=== PATIENT | female | born 1995 | race Caucasian/White ===

== ENCOUNTER 2024-06-29 13:07 | Emergency (ER) | payer OTHER, SELFPAY ==
--- NOTE | ~2024-06-29 | US_ITS ---
FIRST TRIMESTER ULTRASOUND 06/29/2024 15:01 CDT Ordering provider: Denise Boyer PA-C History: . 11 weeks, bleeding . Comparison: None. FINDINGS: INTRAUTERINE GESTATIONAL SAC: Present in the lower segment. Fluid is seen in the cervix area. YOLK SAC: Not seen. POLE: Present. Measures 3.2 cm equivalent to 10 weeks and 1 day. heart rate: Not visualized. FREE FLUID: None. OVARIES: Not visualized. ADNEXAL MASSES: None. IMPRESSION: Intrauterine in the lower segment equivalent to 11 weeks and 1 day. No heart activity is seen. Reviewed, dictated and finalized at location A.
[2024-06-29 14:08] VITALS: BP 141/87; PULSE 96; RESP 20; TEMP 37; O2SAT 97
--- NOTE | 2024-06-29 14:15 | ED.FEMALEGU ---
HPI - Female Genitourinary General Chief complaint: Vaginal Bleeding <REMINGTON Rodney Last Filed: 06/29/24 19:10> Stated complaint: vaginal bleeding cramping, 11 weeks <REMINGTON Rodney Last Filed: 06/29/24 19:10> Time Seen by Provider: 06/29/24 14:15 <REMINGTON Rodney Last Filed: 06/29/24 19:10> Focused HPI: Patient is a 28-year-old female who presents the ED with report of vaginal bleeding. Patient is and currently 11 weeks gestation. Confirmed IUP @ [address] Harvey. She reports she had some light brown vaginal discharge yesterday. Today began having vaginal spotting. Reports spotting has been fairly light, mostly noticing pink with wiping. She also reports having mild lower abdominal cramping. Referred to the ED for further evaluation. Denies significant nausea, vomiting, dysuria, fevers. GENERAL: Well-appearing, well-nourished, and in no acute distress. HEAD: Normocephalic, atraumatic. CHEST: Clear to auscultation. ?No respiratory distress. HEART: Regular rate and rhythm.? NEURO: ?Alert and oriented x3. Patient screened in triage and initial orders placed.? ?Additional care and disposition to be based upon?diagnostic testing and treatment. <REMINGTON Rodney Last Filed: 06/29/24 19:10> Source: patient <REMINGTON Rodney Last Filed: 06/29/24 19:10> Mode of arrival: ambulatory <REMINGTON Rodney Last Filed: 06/29/24 19:10> Limitations: no limitations <REMINGTON Rodney Last Filed: 06/29/24 19:10> Related Data Allergies/Adverse reactions: Allergies Allergy/AdvReac Type Severity Reaction Status Date / Time Sulfa (Sulfonamide Allergy Hives Verified 06/29/24 18:58 Antibiotics) <REMINGTON Rodney Last Filed: 06/29/24 19:10> Review of Systems Review of Systems: CONSTITUTIONAL: Denies fever GASTROINTESTINAL: Reports pelvic cramping GENITOURINARY: Reports vaginal bleeding <Carolyn Lima PA-C - Last Filed: 06/29/24 22:04> All systems reviewed & are unremarkable except as noted in HPI and below <Carolyn Lima PA-C - Last Filed: 06/29/24 22:04> PMFSH Past Medical History Medical History: Medical History (Updated 06/29/24 @ 20:26 by Carolyn Lima PA-C) No active medical problems <Denise Boyer PA-C - Last Filed: 06/29/24 19:10> Social History Social History: Social History (Updated 06/29/24 @ 19:30 by Carolyn Lima PA-C) Substance use: never <Denise Boyer PA-C - Last Filed: 06/29/24 19:10> Exam Narrative: GENERAL: Well-appearing, well-nourished, and in no acute distress. HEAD: Normocephalic, atraumatic. EYES: EOMI. CHEST: No respiratory distress. HEART: Regular rate ABDOMEN: Soft, nontender, nondistended, normal active bowel sounds. EXTREMITIES: Normal range of motion. No edema. SKIN: Warm, dry, no rash. NEURO: No focal deficits. Alert and oriented x3. PSYCH: Normal mood and affect PELVIC: Normal external genitalia. Cervix is open with moderate amount of bright red blood in the vaginal vault with clots <Carolyn Lima PA-C - Last Filed: 06/29/24 22:04> Course Course Emergency Course: Patient and family updated on workup. She declines Cytotec at this time <Carolyn Lima PA-C - Last Filed: 06/29/24 22:04> Consultations Consultation #1: Spoke with Dr. Harvey about patient and workup. Can offer Cytotec here. He would like her to go to the office at 9:00AM on Tuesday for follow up <Carolyn Lima PA-C - Last Filed: 06/29/24 22:04> Date: 06/29/24 <Carolyn Lima PA-C - Last Filed: 06/29/24 22:04> Vital Signs Vital signs: Vital Signs Temperature 98.6 F 06/29/24 14:08 Pulse Rate 96 06/29/24 14:08 Respiratory Rate 20 06/29/24 14:08 Blood Pressure 141/87 H 06/29/24 14:08 Pulse Oximetry 97 06/29/24 14:08 Oxygen Delivery Room Air 06/29/24 14:08
[2024-06-29 14:47] LABS: Basophils Percent Auto 0.3 % (0.2-1.2); Eosinophils Absolute Auto 0.1 K/mm3 (0-0.3); Eosinophils Percent Auto 0.7 % (0-4.4); Hematocrit 43.2 % (37.0-47.0); Hemoglobin 14.2 g/dL (12.0-15.0); Immature Granulocyte Absolute 0.03 K/mm3 (0.00-0.031); Immature Granulocyte Percent A 0.4 % (0-0.5); Lymphocytes Absolute Auto 1.07 K/mm3 (0.9-3.2); Lymphocytes Percent Auto 14.4 % (18.3-44.2); Mean Corpuscular HGB Conc 32.9 g/dl (32-36); Mean Corpuscular Hemoglobin 29.6 pg (26-34); Mean Corpuscular Volume 90.2 fl (80-100); Mean Platelet Volume 10.1 fl (7.4-10.4); Monocytes Absolute Auto 0.5 K/mm3 (0.1-0.6); Monocytes Percent Auto 6.6 % (2.6-8.5); Neutrophils Absolute Auto 5.8 K/mm3 (1.3-6.7); Neutrophils Percent Auto 77.6 % (45.5-73.1); Platelet Count Result 289 k/mm3 (150-375); Red Blood Count 4.79 M/mm3 (4.2-5.4); Red Cell Distribution Width 12.2 % (11.5-14.5); White Blood Count 7.4 K/mm3 (4.5-10.0)
[2024-06-29 14:56] LABS: Add Urine Microscopic? YES; Appearance Urine Clear (Clear); Bacteria Urine None Seen /hpf; Bilirubin Urine Negative (Negative); Blood Urine 2+ (Negative); Color Urine Yellow (Yellow); Glucose Urine UA Negative (Negative); Ketones Urine 3+ mg/dL (Negative); Leukocyte Esterase Ur Negative LEU/UL (Negative); Nitrate Urine Negative (Negative); Non Pathogenic Casts 0-2; Protein Urine Trace mg/dL (Negative); RBC Urine 21-50 /hpf (0-2); Specific Grav Ur 1.019 (1.001-1.035); Squamous Epithelial Cell Urine None Seen /hpf (Few); Urobilinogen Urine 0.2 mg/dL (<2.0); WBC Urine 0-5 /hpf (0-3); pH Urine 5.5 (5.0-9.0)
[2024-06-29 14:58] LABS: Alanine Aminotransferase 67 U/L (6-35); Albumin Level 4.3 g/dL (3.5-5.1); Alkaline Phosphatase 68 U/L (38-126); Anion Gap 12 mmol/L (4-12); Aspartate Amino Transferase 52 U/L (14-36); Bilirubin,Total 0.2 mg/dL (0.2-1.3); Blood Urea Nitrogen 6 mg/dL (7-17); Calcium 9.3 mg/dL (8.4-10.2); Carbon Dioxide 21 mmol/L (22-30); Chloride 104 mmol/L (98-107); Estimated CRCL calculation 135 ml/min; Estimated Glomerular Filt Rate > 60; Glucose 90 mg/dL (65-110); Potassium 3.7 mmol/L (3.4-5.0); Sodium 137 mmol/L (137-145)
[2024-06-29 18:56] VITALS: BP 133/95; PULSE 109; RESP 20; O2SAT 100
== END 2024-06-29 20:40 | disposition home or self-care (01) ==
PROVIDERS: Physician Assistant; Emergency Provider Physician Assistant
DX: O02.1 Missed abortion (principal)
CPT/HCPCS: 36415; 76801; 76817; 80053; 81001; 84702; 85025; 85461; 86850; 86900; 86901; 99284

== ENCOUNTER 2024-07-04 02:11 | Day surgery (SDC) | payer OTHER, SELFPAY ==
[2024-07-02 18:10] VITALS: BMI 38.0
--- NOTE | 2024-07-02 18:17 | SUR.PREOP ---
Report to the Outpatient Waiting Room, entrance under the green pavilion located off [facility], at time 1430 on date 07/04/2024. Planned Procedure Time: 1630.? Time changes happen often and if your time is changed the preop area will call you the afternoon before. - You and your visitor will be asked to self-screen and do not enter if you have any COVID symptoms. Please call surgeon if you need to reschedule. - A mask is optional within the hospital at this time. Patients may have clear liquids (water, carbonated beverages, clear teas, apple juice) until 3 hours prior to surgery with a maximum of 20 ounces. - No food from midnight until time of surgery and no smoking - Infants may have breast milk until 4 hours before surgery, infant formula 6 hours prior to surgery. - Children will be allowed to drink immediately following surgery.? If applicable, please bring a bottle or sippy cup to assist with drinking. Juice, water, soda, and popsicles are readily available.? For infants on formula, please bring formula the day of surgery.? Pacifiers are allowed. Take only the following medications with a SIP of water on the morning of surgery: N/A DO NOT STOP ANY OF YOUR OTHER PRESCRIPTION MEDICATIONS PRIOR TO SURGERY EXCEPT THE FOLLOWING Medications to discontinue per physician vitamins Date to take last dose 07/02/2024 Please no make-up, nail namibian, hairspray, perfume, deodorant, or body powder the day of surgery.? No jewelry (including any body piercings) or valuables the day of surgery, leave them at home.? Please take a shower or bath the night before, or the morning of, surgery with an antibacterial soap.? Wear comfortable, loose fitting clothing.? Children are encouraged to wear pajamas. - Jewelry must be removed prior to entering the operating room.? Rings and piercings that are not removed may be cut off. - The hospital will not accept responsibility for valuables.? - Please leave all valuables, including medications, at home the day of surgery. If you are going home after surgery, a licensed bus driver school must drive you home.? - NO public transportation without another adult if you receive anesthesia. - We recommend that an adult stay with you for 24 hours following discharge. - We also recommend that you do not drive, make important decision, drink alcoholic beverages, or take any drugs that were not prescribed by your health care provider for at least 24 hours after your discharge time. For Pediatric surgeries, we recommend two adults accompany the child home. Follow any additional instructions given to you from your surgeon. Telephone instructions given to Ellie Babb and asked if any additional questions and then verbalized understanding. Patient advised to call surgeon office or pre surgery nurse liaison [phone] if any additional questions.
[2024-07-04] MEDS: LACTATED RINGERS 1,000 ML 30 ML IV CONT (13:50)
[2024-07-04] MEDS: ACETAMINOPHEN 500 MG TABLET 1000 MG PO (15:00)
[2024-07-04 15:05] VITALS: BP 135/80; PULSE 84; RESP 16; TEMP 36.4; O2SAT 100
--- NOTE | 2024-07-04 15:34 | P.PNAN_ITS ---
Anes - Initial Pre Proc Eval Procedure: Operation Date: 07/04/24 15:30 Proposed Procedures p Suction Dilation and Curettage - Juan Carlos Harvey MD Date/Time: 07/04/24 15:34 Surgeon: Juan Carlos Harvey MD Pre Op Diagnosis: incomplete miscarriage Patient Data Age: 28 Gender: F Height: 1.6 m Weight: 98.1 kg Last Vital Signs Temp 97.5 F L 07/04/24 15:05 Pulse 84 07/04/24 15:05 Resp 16 07/04/24 15:05 BP 135/80 07/04/24 15:05 Pulse Ox 100 07/04/24 15:05 O2 Del Method Room Air 07/04/24 15:05 Allergies Allergy/AdvReac Type Severity Reaction Status Date / Time Sulfa (Sulfonamide Allergy Hives Verified 07/04/24 15:03 Antibiotics) Home Medications Medication Instructions Recorded Confirmed Type vits 75-iron 28 mg-folic 1 pkg PO DAILY 07/02/24 07/02/24 History acid 800 mcg-omega3 440 mg oral pack (One Daily ) rizatriptan PRN Migraine Headache 07/02/24 History Patient hx anesthesia problems: none Family hx anesthesia problems: none Results Review: All pre-operative results and documents have been reviewed as part of the pre- operative evaluation. [facility] Past Medical History Medical History No active medical problems Social History Social History Smoking status: Never smoker Substance use: never Living arrangements: with family Spiritual care concerns: No Anes - Eval Final PreProcedure Day of Procedure 07/04/24 15:34 Patient weight: obese Heart: regular rate and rhythm Lungs: clear to auscultation Airway: Mallampati scale class III Neurological: alert and oriented Last oral intake: >/= 8 hours ASA classification: II Emergent: no Anesthetic plan: proceed Anesthesia type and monitoring: general GIVS and standard monitoring Results Review: All pre-operative results and documents have been reviewed as part of the pre- operative evaluation. BMI 38, pt active and can walk 1-2 fos without cp or sob. Informed Consent: The patient's anesthetic plan and its attendant risks and benefits were discussed with the patient/family/POA. Questions were solicited and answers provided to the satisfaction of the patient/family/POA.
--- NOTE | 2024-07-04 15:56 | PM.IMHP ---
H&P: HPI History of Present Illness Date/Time: 07/04/24 15:56 Chief Complaint: Missed miscarriage Narrative: this patient is a 28-year-old female with missed miscarriage. We have agreed to perform suction D&C. She understands risks, benefits, and alternatives. She has completed informed consent process was reviewed to proceed. The patient understands the details of the procedure. The procedure has been explained in detail. She understands the risks. She understands that injuries may occur that result in hospitalization, more surgery, and severe illness. She understands risk of hemorrhage and infection. She denies any chest pain or shortness of breath. She denies any nausea, vomiting, fever, chills. Review of Systems Review of Systems: All systems reviewed & are unremarkable except as noted in HPI and below Constitutional: Constitutional: Denies chills, Denies fatigue, Denies fever(s) and Denies weakness Eyes: Eyes: Denies blurry vision, Denies change in vision, Denies loss of peripheral vision, Denies loss of vision, Denies other visual disturbances and Denies eye pain ENT: Denies vertigo, Denies dizziness, Denies hearing loss, Denies mouth pain, Denies nasal obstruction, Denies neck mass and Denies neck pain Cardiovascular: Cardiovascular: Denies chest pain, Denies diaphoresis, Denies syncope, Denies leg edema and Denies dyspnea Respiratory: Respiratory: Denies chest congestion, Denies cough, Denies hemoptysis, Denies dyspnea and Denies wheezing Gastrointestinal: Gastrointestinal: Denies abdominal pain, Denies constipation, Denies diarrhea, Denies nausea and Denies vomiting Genitourinary: Genitourinary: Denies hematuria, Denies change in libido, Denies nocturia, Denies genital lesions, Denies flank pain and Denies urinary urgency Musculoskeletal: Musculoskeletal: Denies abnormal gait, Denies back pain, Denies myalgias, Denies arthralgias, Denies joint swelling, Denies muscle weakness and Denies neck pain Integumentary/Breasts: Skin/Breast: Denies swelling, Denies breast pain, Denies breast mass, Denies dry skin, Denies nipple discharge, Denies unusual bruising and Denies jaundice Neurologic: Denies Neuro-related abnormal movements, Denies Abnormal speech present, Denies abnormal gait, Denies behavioral changes, Denies confusion, Denies vertigo, Denies dizziness, Denies syncope, Denies loss of vision, Denies memory loss, Denies convulsions and Denies weakness Psychiatric: Psychiatric: Denies abnormal sleep pattern, Denies behavioral changes, Denies change in libido, Denies confusion, Denies depression, Denies anhedonia and Denies memory loss Endocrine: Endocrine: Reports no additional endocrine complaints, Denies change in libido and Denies fatigue Hematologic/Lymphatic: Hematologic/Lymphatic: Reports no additional hematologic/lymphatic complaints Allergic/Immunologic: Allergic/Immunologic: Reports no additional allergic/immunologic complaints and Denies wheezing PMFSH Past Medical History Medical History No active medical problems Social History Social History Smoking status: Never smoker Substance use: never Living arrangements: with family Spiritual care concerns: No Meds Home Medications and Allergies Home Medications Medication Instructions Recorded Confirmed Type vits 75-iron 28 mg-folic 1 pkg PO DAILY 07/02/24 07/02/24 History acid 800 mcg-omega3 440 mg oral pack (One Daily ) rizatriptan PRN Migraine Headache 07/02/24 History Allergies Allergy/AdvReac Type Severity Reaction Status Date / Time Sulfa (Sulfonamide Allergy Hives Verified 07/04/24 15:03 Antibiotics) Vital Signs Vital Signs - 24 hr 07/04/24 15:05 Temperature 97.5 F L Pulse Rate 84 Respiratory Rate 16 Blood Pressure 135/80 Pulse Oximetry 100 Oxygen Delivery Room
--- NOTE | 2024-07-04 15:59 | WPDHPUPDATE1 ---
History and Physical Update Update Date/Time: 07/04/24 15:59 History and Physical has been reviewed, including an updated exam of the patient. There are NO changes in the patient's condition. Risks, benefits, and alternatives have been discussed and questions answered. Patient agrees to proceed with procedure.
[2024-07-04] MEDS: LIDOCAINE HCL 1% LOCAL INJ 20 ML VIAL 10 ML INFILTRATE (16:16)
[2024-07-04 16:27] VITALS: BP 126/94; PULSE 98; RESP 14
--- NOTE | 2024-07-04 16:38 | P.OP_ITS ---
Procedure Note - Detailed Date of Procedure 07/04/24 Pre-op Diagnosis incomplete miscarriage Post-op Diagnosis Same Procedure Performed Suction D&C Surgeon Juan Carlos Harvey MD Anesthesia MAC Indications missed Findings normal-appearing vulva vagina and cervix to. Moderate amount of products conception within the uterus. 8 cm uterus Description of Procedure the patient was taken the operating room. She was prepped and draped in dorsal lithotomy position after induction of mac anesthesia. A speculum was placed in the vagina. Cervix grasped with tenaculum. The cervix was dilated to about 1 c m Using Pandey dilators. A 8. Scottish curved curette was used to perform suction D&C. The curette was introduced and vacuum was applied. The curette was removed over all surfaces of the intrauterine cavity multiple times. This was done until all the surfaces were clear and had the familiar grainy texture they can be felt through the instrument. A sharp curette was then used to curettage all the surfaces. The suction cup was then reapplied 1 more time to remove any debris. The instruments were removed. The speculum and tenaculum were removed. The patient tolerated the procedure well. She was taken recovery room stable condition. Estimated Blood Loss 50 Drains No Packing No Pathology Yes Complications No immediate complications Condition Stable Disposition PACU
[2024-07-04 16:58] VITALS: BP 124/58; PULSE 78; RESP 16
[2024-07-04 17:12] VITALS: BP 124/58; PULSE 78; RESP 16
== END 2024-07-04 17:30 | disposition home or self-care (01) ==
PROVIDERS: Visit Provider Obstetrics & Gynecology
PROC: (CPT 59820; principal; 2024-07-04 15:30)
DX: O02.1 Missed abortion (principal)
CPT/HCPCS: 59820; 88305; A9270; J1100; J1885; J2250; J2405; J2704; J3010; J7120

== ENCOUNTER 2025-08-01 11:07 | Outpatient (RCR) | payer OTHER, SELFPAY | END 2025-08-17 09:33 | disposition other institution (70) | LOC: ANHOBOP 11:07 | PROVIDERS: PCP Physician Assistant; Visit Provider Obstetrics & Gynecology | DX: O26.893 Other specified pregnancy related conditions, third trimester (principal); Z3A.38 38 weeks gestation of pregnancy | CPT/HCPCS: 59025 ==

== ENCOUNTER 2025-08-12 11:18 | Inpatient (IN) | payer OTHER, SELFPAY ==
[2025-08-12] VITALS (179 sets, daily range): BP systolic 111–160; BP diastolic 44–103; PULSE 62–170; TEMP 36.6–37.7; O2SAT 98–100; BMI 40.3
[2025-08-12] MEDS: fentaNYL CITRATE INJ (*CRX) 100 MCG/2 ML VIAL 50 MCG IV PUSH (13:16)
[2025-08-12] MEDS: LACTATED RINGERS 1,000 ML 125 ML IV CONT ×2 (13:17→17:03)
[2025-08-12 13:20] LABS: Hematocrit 40.5 % (37.0-47.0); Hemoglobin 13.5 g/dL (12.0-15.0); Immature Granulocyte Percent A 0.5 % (0-0.5); Lymphocytes Absolute Auto 1.01 K/mm3 (0.9-3.2); Mean Corpuscular HGB Conc 33.3 g/dl (32-36); Mean Corpuscular Hemoglobin 28.8 pg (26-34); Mean Corpuscular Volume 86.5 fl (80-100); Nucleated Red Blood Cells Absolute Auto 0.000 K/mm3 (0.0-0.012); Nucleated Red Blood Cells Perc 0.0 % (0.0-0.2); Platelet Count Result 220 k/mm3 (150-375); Red Blood Count 4.68 M/mm3 (4.2-5.4); White Blood Count 17.7 K/mm3 (4.5-10.0)
--- NOTE | 2025-08-12 13:26 | WPDHPUPDATE1 ---
History and Physical Update Update Date/Time: 08/12/25 13:26 29-YEAR-OLD 2 PARA 0 AT 40 WEEKS who presents for painful contractions. She has made cervical change. She has been admitted for labor. Rupture of membranes was performed. Clear fluid. 5 cm/80%/minus 2. Reassuring status. Some bloody show. Expectant management History and Physical has been reviewed, including an updated exam of the patient. There are NO changes in the patient's condition. Risks, benefits, and alternatives have been discussed and questions answered. Patient agrees to proceed with procedure.
--- OUTSIDE RECORDS SUMMARY | 2025-08-12 13:34 | XMS_ITS | Clinical Summary ---
Author Organization [facility] Address [facility] [place] [address] Care Team Providers Care Radar Technician Name Role Phone Noemi Ruth Primary Care Provider [phone] Allergies Active Allergy Reactions Criticality Noted Date Comments Sulfa Antibiotics Hives Low 01/18/2019 Medications multi vitamin/minerals tablet Take 1 tablet by mouth daily. Active Halobetasol Propionate (BRYHALI) 0.01 % LotionIndication s:Eczema, unspecified type Apply 1 Application topically daily. With a flare up 100 g 2 0 Active Additional Information Patient not taking.Reported on 04/16/2025 pimecrolimus 1 % creamIndications :Eczema, unspecified type Apply topically 2 (two) times daily. With a flare up 30 g 3 0 Active Additional Information Patient not taking.Reported on 04/16/2025 buPROPion XL (WELLBUTRIN XL) 300 MG 24 hr tabletIndication s:Weight gain Take 1 tablet (300 mg total) by mouth daily. 90 tablet 2 1 Active Additional Information Patient not taking.Reported on 04/16/2025 Phentermine HCl 15 MG CapIndications:W eight gain Take 1 capsule by mouth daily. 30 capsule 1 Active Additional Information Patient not taking.Reported on 04/16/2025 rizatriptan 10 MG tabletIndication s:Intractable migraine without status migrainosus, unspecified migraine type Take 1 tablet (10 mg total) by mouth as needed for Migraine. May repeat in 2 hours if needed 27 tablet 2 Active Additional Information Patient not taking.Reported on 04/16/2025 scopolamine (TRANSDERM-SCOP) 1 MG/3DAYS patchIndications :Motion sickness, initial encounter Place 1 patch onto the skin every third day. 10 patch 3 Active Additional Information Patient not taking.Reported on 04/16/2025 vitamin, low iron, 27-0.8 mg tablet Take 1 tablet by mouth daily. Active ketoconazole (NIZORAL) 2 % creamIndications :Tinea corporis Apply topically daily. 60 g 5 Active Active Problems Problem Noted Date Diagnosed Date Eczema 04/03/2020 Migraine 04/25/2018 Immunizations Immunization Administration Dates Next Due DTaP-IPV (Kinrix) 04/10/1999, 9,04/04/1998,04/04,02/12/1998,02/12/1998,1997 ,1997 DTaP-IPV/Hib (Pentacel) 02/12/1998,02/12,1997,12/11 Dtap (Generic) 05/15/2003, 3,04/10/1999,04/10,04/04/1998,04/04/1998 Flucelvax 6 Months+ (Prefill ed Syringe) 08/03/2022 Fluzone Adult Quad >3 Yrs (S nikko Dose Vial) 07/29/2021 Hepatitis B (Generic Peds) 10/13/1998,1997 ,1997 Hib (Generic) 04/10/1999, 9,02/12/1999,02/12,04/04/1998,04/04/1998,1997 ,1997 Influenza (Generic) 08/14/2024,07/29/2021,2014 Influenza Adult (Generic) 09/06/2023,,08/03/2022,08/09 MMR 05/15/2003 MMR (Generic) 05/15/2003,02/03/1999 MMR (MMRII) 05/15/2003 Menactra 06/16/2015 Meningococcal (Menactra) 06/16/2015,06/16/2015 Polio Ipv (Generic) 05/15/2003, 9,04/04/1998,02/12,1997 Polio Opv (Generic) 05/15/2003 Tdap (Generic) 05/30/2012,05/30/2012 Varicella/MMR (Proquad) 05/15/2003,05/15,02/03/1999,02/03 Family History Medical History Relation Comments Graves Disease Brother No Known Problems Father No Known Problems Mother Cancer Neg Hx Relation Status Comments Brother Alive Father Alive Mother Alive Social History Tobacco Use Types Packs/Day Years Used Date Smoking Tobacco: Never Smokeless Tobacco: Never Tobacco Cessation:Counseling Given: No Alcohol Use Standard Drinks/Week Comments Yes 0 (1 standard drink = 0.6 oz pur e alcohol) SOCIALLY AUDIT-C Answer Date Recorded Frequency of Alcohol Consumption Not on file 07/21/2020 Q2: How many drinks containi ng alcohol do you have on a typical day when you are drinking? 1 or 2 07/21/2020 Q3: How often do you have si x or more drinks on one occasion? 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 [employer] Not on file Not on file Not on file Last Filed Vital Signs Vital Sign Reading Time Taken Comments Blood Pressure 130/82 04/16/2025 11:50 AM CDT Pulse 102 04/16/2025 11:50 AM CDT Temperature 36.3 C (97.3 F) 04/16/2025 11:50 AM CDT Respiratory Rate 20 04/16/2025 11:50 AM CDT Oxygen Saturation 100% 04/16/2025 11:50 AM CDT Inhaled Oxygen Concentration - - Weight 96.6 kg (213 lb) 04/16/2025 11:50 AM CDT Height 160 cm (5' 3) 04/16/2025 11:50 AM CDT Body Mass Index 37.73 04/16/2025 11:50 AM CDT Plan of Treatment Health Maintenance Due Date Last Done Comments Cervical Cancer Screening Pap Smear (Age 21 to 29) Every 3 Years 1997 Cervical Cancer Screening 1997 Hepatitis C 2015 Pneumococcal Vaccine: Pediatrics (0 to 5 Years) and At-Risk Patients (6 to 49 Years) (1 of 2 - PCV) 2016 COVID-19 Vaccine (3 - Moderna risk series) 06/30/2021 06/02/2021, 05/05/2021 Annual Physical 07/21/2021 07/21/2020 DTaP, Tdap and Td Vaccines (8 - Td or Tdap) 05/30/2022 05/30/2012, 05/30/2012, 05/15/2003, Additional history exists HPV Vaccines (1 - 3-dose SCDM series) 2024 Hepatitis B Vaccines Completed 10/13/1998, 1997, 1997 Meningococcal Vaccine Completed 06/16/2015 , 06/16/2015, 06/16/2015 PHQ-2 (Physician Mangum) Completed 04/16/2025 Meningococcal B Vaccine Aged Out No l onger eligible based on patient's age to complete this topic RSV Immunizations Under 20 Months Aged Out No longer eligible based on patient's age to complete this topic Insurance Care Teams Radar Technician Relationship Specialty [place] [id number] [place] [phone] PCP - General PHYSICIAN LIFE ENRICHMENT MANAGER 11/24/21
--- OUTSIDE RECORDS SUMMARY | 2025-08-12 13:34 | XMS_ITS | Encounter Summary ---
Author Organization [facility] Address [address] [place] [id number] Care Team Providers Care Woven Paper Hat Mender Name Role Phone Noemi Ruth Primary Care Provider [phone] Encounter Details Date Type Department Care Team (Late st Contact Info) Description 01/31/2023 Passpackt Message Enc [facility] Family & Internal Medicine [facility] [address] [place] [address] [place] [address] [place] [address] Med Question Social History Tobacco Use Types Packs/Day Years Used Date Smoking Tobacco: Never Smokeless Tobacco: Never Alcohol Use Standard Drinks/Week Comments Yes 0 [...] occasion? 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
--- NOTE | 2025-08-12 14:03 | LDADM ---
This patient, Ellei Babb, was admitted to Labor/Delivery/Recovery 105 on 08/12/25 at 11:18. Plans for labor, pain management and were discussed with patient. Patient/family oriented to hospital policies and general routines including ID bracelet, bed and alarms, visiting hours, pain management, procedures, bathroom and other care routines, personal items, smoking policy, room service/diet and guest tray routines, infant security routines, and visiting hours. Patient/Family are encouraged to report perceived risks to care and to ask questions if they do not understand what they are told or what they should do. See OBIX for further documentation.
[2025-08-12 14:08] LABS: Syphilis IgG/IgM Antibody Non-Reactive (Nonreactive)
[2025-08-12] MEDS: OXYTOCIN 30 UNITS/NS 500 ML 30 UNITS/500 ML BAG 6 UNITS IV CONT (16:11)
[2025-08-13] VITALS (94 sets, daily range): BP systolic 109–169; BP diastolic 49–143; PULSE 58–118; RESP 16–18; TEMP 36.4–37.7; O2SAT 95–100
--- NOTE | 2025-08-13 04:02 | PM.OBPRVD ---
OB - Vaginal Delivery Note Procedure Delivery date: 08/13/25 Delivery augmentation: Rupture of Membranes and Pitocin Delivery monitor: External FHT and Internal Uterine Route of delivery: Episiotomy description: None Laceration Description: Perineal - 2nd Degree Delivery repair: vicryl Specimen: No Quantitative Blood Loss (ml): 400 Anesthesia type: Epidural Disposition: Floor Complications: No immediate complications
[2025-08-13] MEDS: OXYTOCIN 30 UNITS/NS 500 ML 30 UNITS/500 ML BAG 125 UNITS IV CONT (04:14)
[2025-08-13] MEDS: IBUPROFEN 600 MG TABLET PO ×3 (06:32→20:15)
[2025-08-13] MEDS: BENZOCAINE 20% AER SPR (*SP) 56 GM CAN 1 SPRAY TOPICAL (06:32)
[2025-08-13] MEDS: WITCH HAZEL 40 PADS 1 PAD TOPICAL (06:32)
--- NOTE | 2025-08-13 07:00 | OBPPTRN ---
Patient transferred to post room # 285 via wheelchair. Support person present. Oriented to unit, room, information board, rooming in, admission packet and security measures. Patient verbalizes understanding.
--- NOTE | 2025-08-13 09:15 | PC.NURSE ---
Patient requested assistance. Mom states that baby ate well at the initial feeding and then fed for about 5 minutes an hour ago. She woke up crying an mom felt that she was hungry again. Baby is unwrapped and at the right breast in cross cradle hold but is exhibiting no feeding cues. We tried for a few minutes to wake her and entice her to latch but were unsuccessful. Mom is encouraged to hold her upright on her chest for 10-15 minutes and observe for feeding cues. Mom has a right nipple that is everted but with two lobes rather than one round nipple face. Will check back with patient soon to assess readiness to feed. Primary RN updated.
--- NOTE | 2025-08-13 09:40 | PC.NURSE ---
Met with patient regarding infant feeding. Mom tried again at 0930 but was unable to wake baby or latch. Reviewed normal behaviors and sleepiness after delivery. Mom is given the option of trying to wake baby again now or waiting 30-45 minutes and trying again. Mom wishes to rest and try again later. She is encouraged to watch for early feeding cues and initiate a feeding if seen. Father of baby present and supportive. Primary RN updated.
--- NOTE | 2025-08-13 12:00 | PC.NURSE ---
Checked in with patient about and she has baby latched to the right breast in cross cradle. Baby is latched and suckling consistently. Mom states there is no pain or pinching with the latch. Baby has fed for 12 minutes and mom is encouraged to allow baby to feed as long as desired, burp, and then offer the second breast. Educated that most newborns feed for a total of 15-20 minutes each feeding and often don't take the second breast. Patient verbalizes understanding and will call for assistance as needed. Primary RN updated.
[2025-08-13] MEDS: DOCUSATE SODIUM 100 MG CAPSULE PO ×2 (12:42→20:15)
[2025-08-13] MEDS: MULTIVIT/MIN/PREN/FOL AC/IRON TABLET 1 TAB PO (12:42)
[2025-08-13] MEDS: ACETAMINOPHEN 325 MG TABLET 650 MG PO (14:30)
[2025-08-14] MEDS: IBUPROFEN 600 MG TABLET PO ×2 (03:25→09:07)
[2025-08-14 05:11] LABS: Hematocrit 30.3 % (37.0-47.0); Hemoglobin 9.8 g/dL (12.0-15.0)
--- NOTE | 2025-08-14 08:00 | P.PNOB_ITS ---
OB - PN: Subj Subjective Date/time seen: 08/14/25 08:00 Interval history: pp day 1 desires d/c home OB - PN: Obj Data Labs 08/14/25 03:24 Labs: Laboratory Results - last 24 hr 08/14/25 03:24 Hgb 9.8 L D Hct 30.3 L OB - PN A/P Plan day: 1 Plan: routine care and discharge home Time Spent With Patient Time: Total time spent is greater than 50% in coordination of care (as documented) at patient's floor/unit and/or counseling patient: Review of Systems 2 Review of Systems: All systems reviewed & are unremarkable except as noted in HPI and below Exam 2 Const: General: cooperative, healthy appearing and comfortable Chest: Chest palpation & inspection: normal inspection of the chest Resp: Effort & Inspection: normal respiratory effort Cardio: Rate: regular rate Skin: General skin exam: normal color Extrem: General: normal to inspection Psych: Appearance: grossly normal
--- NOTE | 2025-08-14 08:05 | P.DS_ITS ---
DS: Admitting Diagnosis Discharge Date 08/14/25 Admitting Diagnosis labor DS: Discharge Diagnosis Discharge Diagnosis (1) Vaginal delivery: Code(s): O80 - Encounter for full-term uncomplicated delivery Status: Acute OB - DS: Summary OB Procedures : None OB Procedures Intrapartum: Spontaneous Vag Delivery OB Procedures: : None Peripartum Data Laceration Description: Perineal - 2nd Degree Episiotomy description: None Time Spent with Patient Time attestation: Total time spent providing and/or coordinating discharge services: DS: Data Data Completed and Pending Labs on day of discharge: Labs from last 24 hours 08/14/25 03:24 Hgb 9.8 L D Hct 30.3 L Discharge Plan Discharge Attending physician on discharge: Juan Carlos Harvey Discharging Clinician: Tania Gutierrez Patient Disposition: Home Activity: pelvic rest Diet: regular Patient Instructions: Antibiotic Form Patient Language: Grenadian Stand Alone Forms: General Discharge Information Follow-up/Referrals: Juan Carlos Harvey MD [Physician, B[employer] MACHINE OPERATOR] - 4 Weeks Discharge Medications: New hydrocodone-acetaminophen 5-325 mg tablet 1 tablet PO Q6H PRN (Reason: pain) Qty: 20 0RF Continued One Daily [phone] mg-mcg-mg Combo Pack 1 pkg PO DAILY rizatriptan 10 mg BYMOUTH PRN (Reason: Migraine Headache) Patient Comments: Patient is unsure how much she takes and does not take this often Date of admission: 08/12/25 11:18 Primary Care Provider: FloryNoemi Admitting Provider: Juan Carlos Harvey Attending physician on admission: Juan Carlos Harvey Condition: Stable
[2025-08-14 08:20] VITALS: BP 132/85; PULSE 72; RESP 16; TEMP 36.9; O2SAT 98
[2025-08-14] MEDS: MULTIVIT/MIN/PREN/FOL AC/IRON TABLET 1 TAB PO (09:07)
[2025-08-14] MEDS: DOCUSATE SODIUM 100 MG CAPSULE PO (09:07)
[2025-08-14] MEDS: HYDROcodone/acetaminophen (*CRX) 5-325 MG TABLET 1 TAB PO (09:19)
--- NOTE | 2025-08-14 14:05 | PC.NURSE ---
Patient viewed the discharge video Mother & Baby Care, The First Two Weeks. Patient was given the opportunity and encouraged to ask questions. Patient verbalized understanding of information shared and has been given the mother/baby guide for home reference.
--- NOTE | 2025-08-14 14:50 | PC.NURSE ---
1310 Introductions were made, then consulted with patient to assess needs related to . Discussed with mother her?plans to feed?her infant and the?experience so far. Per mother she is able to optimally latch infant without any pain. Resources provided for inpatient and outpatient services with the feeding sheet, mom/baby guide and name written on the communication board. Mother voiced understanding of information and will call if there is a request for assistance. Reported to the Primary RN. 0890 Notified by Primary RN that mother and are going to be discharged home today. Mother is feeding appropriately for growth of infant and understands stimulating infant to eat if needed. Infant has had appropriate feedings in the last 24 hours meets the outcomes for weight, output, blood sugar and jaundice at this time. Reinforced understanding of milk production, transition of milk, signs of adequate intake, transition of stool, prevention/relief of engorgement, plugged ducts, mastitis, responsive watching for feeding cues, the different methods of stimulating to breastfeed 1-3 hours after the start of the last feeding, community resources, and when to call a provider using the resource of the feeding sheet along with the mom and baby guide. Mother voiced understanding of the information shared, is confident to continue effectively her infant at home, when to call for assistance, denies any additional assistance or education at this time. Reported to the Primary RN.
--- NOTE | 2025-08-14 15:32 | WPDANLDPN2 ---
Anes-Prog Note L&D Date/Time: 08/14/25 15:32 Comfortable throughout: labor and delivery Neuraxial method: epidural Epidural/Spinal procedure site: clean & non-tender Neuro status: Neuro function grossly intact. Cardiovascular status: normal Respiratory status: normal Airway patency: baseline Mental status: baseline Post-Op hydration status: normal Vital Signs: Last Vital Signs Temp 36.9 C 08/14/25 08:20 Pulse 72 08/14/25 08:20 Resp 16 08/14/25 08:20 BP 132/85 08/14/25 08:20 Pulse Ox 98 08/14/25 08:20 O2 Del Method Room Air 08/13/25 20:20 Pain score (VAS): 2 I/O: Intake & Output 08/13/25 08/14/25 08/14/25 23:59 07:59 15:59 Intake Total 0 Balance 0 Post-procedural complaints: none Patient feedback: Patient satisfied with anesthetic care.
[2025-08-15 10:26] VITALS: BP 133/81; PULSE 88; RESP 16; TEMP 36.6; O2SAT 97
== END 2025-08-14 15:38 | disposition home or self-care (01) | DRG 807 ==
LOC: ANHLDR 12:43 → ANHOB2 08-13 07:02
PROVIDERS: Admitting Provider Obstetrics & Gynecology; PCP Physician Assistant; Visit Provider Obstetrics & Gynecology
DX: O70.1 Second degree perineal laceration during delivery (principal); Z37.0 Single live birth; Z3A.40 40 weeks gestation of pregnancy
CPT/HCPCS: 36415; 85014; 85018; 85025; 86593; 86850; 86900; 86901; A9270; J2590; J2795; J3010; J7120